=== PATIENT | male | born 1995 | race Two or more races ===

== ENCOUNTER 2024-03-26 11:29 | Inpatient (IN) | payer OTHER ==
[~2024-03-26] VITALS: Ht 172.7 cm; Wt 64.0 kg
[2024-03-26 15:52] VITALS: BP 129/85; PULSE 62; RESP 18; TEMP 98.3; O2SAT 100
[2024-03-26] MEDS ORDERED: ACETAMINOPHEN 500 MG TAB PO PRN (16:15)
[2024-03-26] MEDS ORDERED: HYDROcodone-ACET 5/325MG TAB PO PRN (16:15)
[2024-03-26] MEDS ORDERED: NITROGLYCERIN 0.4 MG SL TAB SL PRN (16:30)
[2024-03-26] MEDS ORDERED: ONDANSETRON HCL 4 MG/2 ML VIAL IV PRN (16:30)
[2024-03-26] MEDS ORDERED: MORPHINE SULFATE INJ 2 MG/ml SYRG IV PRN (16:30)
[2024-03-26 16:51] LABS: Urine Bacteria None Seen /hpf (None Seen); Urine WBC None Seen /hpf (0 - 3)
[2024-03-26 16:57] VITALS: BP 129/85; PULSE 62; RESP 18; TEMP 98.3; O2SAT 100
[2024-03-26 17:10] LABS: Basophils # (auto) 0 10 ^3/uL (0-0.2); Eosinophils # (auto) 0.1 10 ^3/uL (0-0.8); Hemoglobin 15.8 g/dL (13.5-17.5); Lymphocytes # (auto) 2.2 10 ^3/uL (0.4-5.4); Monocytes # (auto) 0.4 10 ^3/uL (0-1.3)
[2024-03-26 17:11] LABS: Basophils % (auto) 0.7 % (0.0-2.0); Hematocrit 48.5 % (41.0-53.0); Lymphocytes % (auto) 38.1 % (10.0-50.0); Mean Corpuscular Hemoglobin 25.4 pg (28.0-32.0); Mean Corpuscular Hgb Conc. 32.6 g/dL (32.0-36.0); Mean Corpuscular Volume 77.9 fL (80.0-100.0); Monocytes % (auto) 7.4 % (0.0-12.0); Neutrophils % (auto) 51.8 % (37.0-80.0); Nucleated Red Blood Cells % 0.3 %; Red Blood Cells 6.22 10^6/uL (4.5-5.90); Red Cell Distribution Width 14.9 % (11.8-14.3); White Blood Cell 5.8 10^3/uL (4.4-10.8)
[2024-03-26 17:13] LABS: Urine Blood Negative /uL (Negative); Urine Clarity Clear (Clear); Urine Color Light-Yellow (Yellow); Urine Protein, UAD Negative (Negative); Urine Specific Gravity 1.038 (1.001-1.035); Urine Urobilinogen Normal (Negative)
[2024-03-26 17:22] LABS: Albumin 4.7 g/dL (3.2-4.8); Alkaline Phosphatase 78 U/L (46-116); Anion Gap 7 (5-15); Aspartate Aminotransferase 17 U/L (13-40); Bilirubin, Total 2.1 mg/dL (0.2-1.0); Blood Urea Nitrogen 7 mg/dL (9-23); Calcium 9.7 mg/dL (8.5-10.1); Carbon Dioxide 25 mmol/L (20-30); Chloride 105 mmol/L (98-107); Glucose 74 mg/dL (74-106); Potassium 3.5 mmol/L (3.5-5.1); Sodium 137 mmol/L (136-145); Total Protein 7.7 g/dL (5.7-8.2)
[2024-03-26 17:23] LABS: Alanine Aminotransferase < 9 U/L (7-40)
[2024-03-26 17:33] LABS: INR 1.14 (0.9-1.15); Partial Thromboplastin Time 29.7 SEC (24.5-34.5)
[2024-03-26] MEDS: PIPERACILLIN-TAZOB 3.375GM 100 ML IV ONE (17:46)
[2024-03-26] MEDS: PANTOPRAZOLE 40 MG/10 ML VIAL INJ IV ONE (17:47)
[2024-03-26] MEDS: MORPHINE SULFATE INJ 2 MG/ml SYRG IV PRN (17:48)
[2024-03-26] MEDS: SODIUM CHLORIDE 0.9% 1,000 ML IV SCH (17:49)
[2024-03-26 20:10] VITALS: PULSE 71; RESP 20; O2SAT 99
[2024-03-26 21:00] VITALS: BP 109/64; PULSE 71; RESP 20; TEMP 98.3; O2SAT 99
[2024-03-26] MEDS: PIPERACILLIN-TAZOB 3.375GM 100 ML IV SCH (21:49)
[2024-03-27] VITALS (8 sets, daily range): BP systolic 100–139; BP diastolic 56–96; PULSE 60–76; RESP 17–20; TEMP 97.2–98.3; O2SAT 98–99
[2024-03-27] MEDS ORDERED: OMNIPAQUE 12mg/ml 500ml ORAL SOLUTION PO ONE (08:50)
[2024-03-27] MEDS: PANTOPRAZOLE 40 MG/10 ML VIAL INJ IV SCH (09:28)
[2024-03-27] MEDS ORDERED: IOHEXOL 300 MG/ML 100ML BOTTLE IJ ONE (12:28)
[2024-03-28 01:00] VITALS: BP 102/67; PULSE 60; RESP 17; TEMP 97; O2SAT 96
[2024-03-28 05:00] VITALS: BP 107/67; PULSE 60; RESP 17; TEMP 98.6; O2SAT 97
[2024-03-28 06:32] LABS: Basophils # (auto) 0 10 ^3/uL (0-0.2); Eosinophils # (auto) 0.2 10 ^3/uL (0-0.8); Lymphocytes # (auto) 1.3 10 ^3/uL (0.4-5.4); Mean Corpuscular Volume 77.1 fL (80.0-100.0); Neutrophils # (auto) 1.7 10 ^3/uL (1.6-8.6); Red Cell Distribution Width 14.8 % (11.8-14.3); White Blood Cell 3.7 10^3/uL (4.4-10.8)
[2024-03-28 06:37] LABS: Eosinophils % (auto) 4.9 % (0.0-7.0); Hemoglobin 15.6 g/dL (13.5-17.5); Lymphocytes % (auto) 35.6 % (10.0-50.0); Mean Corpuscular Hemoglobin 25.6 pg (28.0-32.0); Mean Corpuscular Hgb Conc. 33.2 g/dL (32.0-36.0); Monocytes # (auto) 0.5 10 ^3/uL (0-1.3); Monocytes % (auto) 12.4 % (0.0-12.0); Neutrophils % (auto) 46.1 % (37.0-80.0); Nucleated Red Blood Cells % 0.4 %
[2024-03-28 06:38] LABS: Anion Gap 5 (5-15); Carbon Dioxide 27 mmol/L (20-30); Chloride 107 mmol/L (98-107); Potassium 4.4 mmol/L (3.5-5.1); Sodium 139 mmol/L (136-145)
[2024-03-28 06:39] LABS: Calcium 9.5 mg/dL (8.5-10.1)
[2024-03-28 06:44] LABS: BUN/Creatinine Ratio 6.5 (10.0-20.0); Blood Urea Nitrogen 9 mg/dL (9-23); Glucose 91 mg/dL (74-106)
[2024-03-28 08:00] VITALS: RESP 18
[2024-03-28 08:20] VITALS: BP 113/73; PULSE 75; RESP 18; TEMP 98.3; O2SAT 99
[2024-03-28 08:54] LABS: Hepatitis B Surface Antigen Negative (Negative)
[2024-03-28 09:17] LABS: Hepatitis C Antibody Negative (Negative)
[2024-03-28 12:15] VITALS: BP 104/67; PULSE 67; RESP 18; TEMP 98.5; O2SAT 98
[2024-03-28] MEDS ORDERED: METR-344 PO (13:18)
[2024-03-28] MEDS ORDERED: LEVO750T40 PO (13:18)
[2024-03-28 16:00] VITALS: BP 141/83; PULSE 70; RESP 18; TEMP 98.7; O2SAT 97
== END 2024-03-28 16:45 | disposition home or self-care (01) | DRG 394 ==
LOC: EAST 15:38
PROVIDERS: ADMIT Internal Medicine; ATTEND Internal Medicine
DX: K35.80 Unspecified acute appendicitis (principal); K56.1 Intussusception; E80.6 Other disorders of bilirubin metabolism; Z79.899 Other long term (current) drug therapy
CPT/HCPCS: 36415; 74177; 76705; 80048; 80053; 81001; 82248; 83615; 85025; 85610; 85730; 86803; 86850; 86900; 86901; 87081; 87340; C9113; G0378; J2543